=== PATIENT | male | born 1985 | race African-American/Black ===

== ENCOUNTER 2018-04-01 21:57 | Emergency (ER) | payer SELFPAY ==
[2018-04-01 21:59] VITALS: BP 114/70; PULSE 122; RESP 20; TEMP 35.9; O2SAT 98; BMI 20.3
[2018-04-01 23:20] VITALS: PULSE 89; RESP 18; O2SAT 100
[2018-04-01 23:21] VITALS: O2SAT 100
--- NOTE | 2018-04-02 | RAD_ITS ---
STUDY: X-RAY CHEST REASON FOR EXAM: Male, 33 years old. Shortness of breath and cough. TECHNIQUE: PA and lateral views of the chest. COMPARISON: A chest radiograph dated October 25, 2016. FINDINGS: There is hyperinflation of the lungs consistent with chronic obstructive lung disease (COPD). There is no demonstrated pleural abnormality. Normal size heart. Normal mediastinum and isaura. Normal visualized pulmonary arteries. Normal visualized aortic arch and descending thoracic aorta. Normal visualized thoracic spine. Normal visualized ribs, clavicles, and shoulders. There is no demonstrated abnormality of the visualized soft tissue structures of the upper abdomen. RAD/Chest PA and Lateral IMPRESSION: No radiographic evidence of acute cardiopulmonary disease. Electronically Signed: Ani Molina MD at 0:45 EDT , Service support ,
[2018-04-02 00:20] VITALS: PULSE 118; RESP 18
[2018-04-02] MEDS: Ipratropium/Albuterol Sulfate 3 ML AMPUL.NEB INHALATION (00:20)
--- NOTE | 2018-04-02 00:59 | ED.DCSUM_ITS ---
- ER Visit Summary Date of Service: 04/02/18 Chief Complaint: Shortness of breath and cough History of Present Illness: The patient is a 33 M who felt short of breath when he woke yesterday morning. He was sent home and work early. He states his shortness of breath worsened last night and then was even worse when he woke this morning. He has developed a cough with mild yellow sputum production. He reports chills. Physical Examination: Vital signs unremarkable. Patient is afebrile his pulse ox is 100% on room air. Head neck examination reveals cerumen blocking the left canal. Posterior pharynx examination was mild drainage. Heart is regular rate and rhythm. Lung sounds are diminished throughout. Abdomen is soft nontender. Test Results: Two-view chest x-ray shows no acute disease. Emergency Department Course and Treatment: Patient was given a DuoNeb. On repeat evaluation he does report improved symptoms. He does have increased air movement on auscultation. He is given albuterol inhaler with a spacer and taught how to use it. I will also treat him with a short course of steroids to prevent repeat bronchospasm. Treatment Plan: [] Disposition: Discharge Impression: Bronchitis This note was generated with The [employer] dictation software. It may contain incorrect words, spelling, and punctuation that were not noted in review of the chart prior to signing ED Disposition - Plan for ED Patient: Chief Complaint: Shortness of Breath Referrals: Care Physician,No Primary [Primary Care Provider] -
--- NOTE | 2018-04-02 00:59 | ED.DEP ---
ED Disposition - Plan for ED Patient: Disposition: Home or Assisted Living Chief Complaint: Shortness of Breath Instructions: Acute Bronchitis Prescriptions: Prednisone 40 mg PO DAILY #4 days Referrals: Sadie Salas MD [COURTESY STAFF PHYSICIAN] - As Needed
[2018-04-02] MEDS: predniSONE 20 MG Tablet 40 MG PO (01:07)
[2018-04-02 01:08] VITALS: BP 116/76; PULSE 114; RESP 16; O2SAT 100
[2018-04-02 01:11] VITALS: BP 116/76; PULSE 114; RESP 16; O2SAT 100
== END 2018-04-02 01:12 | disposition home or self-care (01) ==
PROVIDERS: Emergency Provider Emergency Medicine
DX: J40 Bronchitis, not specified as acute or chronic (principal); Z72.0 Tobacco use
CPT/HCPCS: 71046; 94640; 99283

== ENCOUNTER 2018-07-19 15:12 | Emergency (ER) | payer MEDICAID, SELFPAY ==
[2018-07-19 15:15] VITALS: BP 131/79; PULSE 70; RESP 16; TEMP 36.6; O2SAT 98; BMI 18.3
--- NOTE | 2018-07-19 15:21 | EKG12_ITS ---
Test Reason : DIZZINESS Blood Pressure : / mmHG Vent. Rate : 065 BPM Atrial Rate : 065 BPM P-R Int : 136 ms QRS Dur : 084 ms QT Int : 466 ms P-R-T Axes : 081 084 074 degrees QTc Int : 484 ms Normal sinus rhythm Right atrial enlargement Prolonged QT Abnormal ECG Confirmed by EVER CARTER, SHERITA ([id number]), visual effects editor GUANAKO CARDOSO ([id number]) on 07/22/2018 2:13:52 PM Referred By: RICKEY Confirmed By:SHERITA CURTIS MD
[2018-07-19 15:36] VITALS: O2SAT 97
--- NOTE | 2018-07-19 15:36 | CT_ITS ---
STUDY: CT BRAIN WITHOUT CONTRAST REASON FOR EXAM: Male, 33 years old. Dizziness RADIATION DOSAGE (If Supplied By Facility): CTDIvol = ( 44.99 ) mGy, DLP = ( 745.49 ) mGycm TECHNIQUE: Transaxial CT imaging of the brain was performed without administration of intravenous contrast material. Individualized dose optimization techniques were used for this CT. COMPARISON: None. FINDINGS: Normal soft tissue structures. Normal calvarium. Normal size ventricles and extra-axial spaces for the patient's age. Normal white matter tracts of the cerebral hemispheres. Normal basal ganglia and thalami. Normal brainstem. The central cerebellum on axial image 13, there is a 2.3 x 1.8 cm focal hyperdense lesion with adjacent vasogenic edema. There is extension of the hyperdense component into the inferior cerebellum (image 9). Associated mass effect of the cerebellum with loss of cerebellar sulci but no rigo hydrocephalus identified. There are no findings of an acute ischemic infarction. Normal visualized paranasal sinuses. CT/Brain/Head without Contrast IMPRESSION: 1. Central posterior fossa/cerebellar hemorrhage with adjacent vasogenic edema. Differential considerations include hypertensive intracranial hemorrhage or intracranial mass such as hemangioblastoma, metastasis or vascular malformation. N.B. : The above information has been verbally conveyed by Vincenzo Meyers MD to Nancie Vania on 07/19/2018 17:09:55 (ET). Electronically Signed: Vincenzo Meyers MD at 17:15 EST , Service support ,
--- NOTE | 2018-07-19 15:36 | CT_ITS ---
STUDY: CT ABDOMEN AND PELVIS WITHOUT CONTRAST REASON FOR EXAM: Male, 33 years old. Abdominal pain RADIATION DOSAGE (If Supplied By Facility): CTDIvol = ( 6.04 ) mGy, DLP = ( 271.80 ) mGycm TECHNIQUE: Transaxial images were obtained from the dome of the diaphragm to the symphysis pubis without oral contrast, and without intravenous contrast. Sagittal and coronal images were reconstructed. Individualized dose optimization techniques were used for this CT. COMPARISON: None. FINDINGS: The visualized lung bases are unremarkable. The visualized portions of the heart are within normal limits. Normal liver. Normal gallbladder and extrahepatic biliary system. Normal spleen. Normal pancreas. Normal bilateral adrenal glands. Normal right kidney. Normal left kidney. Normal visualized stomach. Normal small intestine. There is moderate fecal retention within the rectal vault. No colon wall thickening. The appendix is not seen Normal abdominal aorta. Normal inferior vena cava. Normal retroperitoneum. Normal urinary bladder. Normal abdominal wall. Normal osseous structures. CT/Abdomen/Pelvis without Cont IMPRESSION: 1. No acute inflammatory process, hydronephrosis or renal stones. 2. Mild fecal retention in the rectum N.B. : The above information has been verbally conveyed by Vincenzo Meyers MD to Nancie Felicianopaulo on 07/19/2018 17:15:08 (ET). Electronically Signed: Vincenzo Meyers MD at 17:17 EST , Service support ,
[2018-07-19] MEDS: 0.9% Normal Saline 1,000 ML 150 ML IV (15:37)
--- NOTE | 2018-07-19 15:38 | RAD_ITS ---
STUDY: X-RAY CHEST REASON FOR EXAM: Male, 33 years old. Dizziness with nausea and vomiting for 3 days TECHNIQUE: AP COMPARISON: 04/02/2018 FINDINGS: The lungs are clear and expanded. There is no demonstrated pleural abnormality. Normal size heart. Normal mediastinum and isaura. Normal visualized pulmonary arteries. Normal visualized aortic arch and descending thoracic aorta. Normal visualized thoracic spine. Normal visualized ribs, clavicles, and shoulders. There is no demonstrated abnormality of the visualized soft tissue structures of the upper abdomen. RAD/Chest 1 View (Portable) IMPRESSION: Normal x-ray examination of the chest. Electronically Signed: Vincenzo Meyers MD at 16:06 EST , Service support ,
--- NOTE | 2018-07-19 15:38 | ED.VISSUMM ---
- ER Visit Summary Date of Service: 07/19/18 Chief Complaint: [] Vomiting for 3 days History of Present Illness: The patient is a 33 M [] patient reports he has had vomiting dizziness for 3 days with consistent protracted vomiting to the point he cannot take even small amounts of liquids, he also indicates if he moves his body weight he is very dizzy and that triggers vomiting, he has no headache, no fever no cough no URI symptoms, no abdominal pain normal bowel habits normal urinary habits, he has no past history, no exposures to sick individuals or tainted food or antibiotics, he has no past history he smokes cigarettes occasionally smokes marijuana occasionally Physical Examination: [] 135/80 afebrile He was quite diaphoretic with IV start General, no distress resting comfortably HEENT is generally unremarkable The neck is supple no adenopathy Cardiovascular, regular rate and rhythm Lungs, clear bilateral Abdomen, soft nontender Extremities, no clubbing cyanosis or edema Neurologic, awake alert answering questions appropriately moving all 4 extremities movement of his head causes dizziness he has full range of all range of motion all extremities his NIH is 0 cranial nerves normal Test Results: [] Emergency Department Course and Treatment: [] Protracted vomiting for 3 days with dizziness the differentials rather extensive, there are no obvious reasons he would have all of the above as he has been healthy with no past history IV fluids, CT head and abdomen reevaluate There is a hemorrhage involving the right cerebellar area with some edema and some slight shift the fourth ventricle appears open when we immediately saw that we contacted [facility] neurosurgery who accepted the patient in transfer the patient on reevaluation is resting comfortably bed he is awake and alert no neurologic abnormalities his feet he feels better we just with the fluids I explained the CT finding the need to transfer to tertiary care neurosurgery management he agrees to transfer, due to the very inclement weather we will be transferred by ground, The formal CT results and labs will be pending but we will not delay his transfer those results will be reviewed later and on the chart Treatment Plan: [] Disposition: [] Transfer [facility] neurosurgery Impression: [] Cerebellar intraparenchymal hemorrhage, nausea and vomiting This note was generated with [employer] software. It may contain incorrect words, spelling, and punctuation that were not noted in review of the chart prior to signing ED Disposition - Plan for ED Patient: Chief Complaint: Dizziness Referrals: Care Physician,No Primary [Primary Care Provider] -
[2018-07-19 15:51] LABS: Absolute Lymphocyte Count 3.77 X10^3/ul (0.83-4.51); Absolute Neutrophil Count 2.4 X10^3/uL (2.0-7.7); Basophil# 0.03 X10^3/uL; Basophil% 0.4 % (0-1); Eosinophil# 0.04 X10^3/uL; Eosinophils% 0.6 % (0-5); Hematocrit 50.5 % (40-54); Hemoglobin 17.5 g/dl (13.0-16.5); Lymphocyte # 3.77 X10^3/ul (4.0); Mean Corp Hgb Conc 34.7 g/gl (32-36); Mean Corpuscular Hgb 31.5 pg (27.0-32.0); Mean Platelet Vol. 9.6 fl (6.2-12.0); Monocyte# 0.62 X10^3/uL; Monocyte% 9.1 % (0-10); Neutrophil # 2.36 X10^3/uL (2.7-7.7); Neutrophil % 34.5 % (47-70); Platelet Count 206 K/mm3 (150-450); RBC Distribution Width CV 13.6 % (11.6-14.6); RBC Distribution Width SD 44.9 fl (35.1-43.9); Red Blood Count 5.55 M/mm3 (4.6-6.2); White Blood Count 6.9 K/mm3 (4.4-11.0)
[2018-07-19 16:04] LABS: POSITIVE COUNT NO; POSITIVE DIFFERENTIAL NO; POSITIVE MORPHOLOGY NO
[2018-07-19 16:11] LABS: Anion Gap 10 (5-15); BUN 10 mg/dL (7-18); BUN/Creat Ratio 8.8 RATIO (10-20); Calcium,Total 9.2 mg/dL (8.5-10.1); Chloride 101 mmol/L (98-107); Creatinine, Serum 1.13 mg/dL (0.70-1.30); EST Glomerular Filtration Rate 80 mL/min (>60); Est Glom Filt Rate - Afr Amer 96 mL/min (>60); Glucose 92 mg/dL (74-106); Sodium Level 137 mmol/L (136-145)
--- NOTE | 2018-07-19 17:02 | NURSING ---
CALLED [facility]
[2018-07-19 17:10] VITALS: BP 126/89; PULSE 61; RESP 12; O2SAT 98
[2018-07-19 17:34] VITALS: BP 123/83; PULSE 62; RESP 16; TEMP 36.7; O2SAT 98
[2018-07-19] MEDS: 0.9% Normal Saline 1,000 ML 500 ML IV ×2 (17:38)
[2018-07-19 18:31] LABS: Bacteria 0 SEEN /hpf (None Seen)
[2018-07-19 18:41] LABS: Color, Urine Yellow (Yellow); Glucose, Dipstick Normal (Normal); Ketone-Dipstick 15 mg/dl (Negative); Leukocyte Esterase-Dipstick 100 /ul (Negative); Nitrite-Dipstick Negative (Negative); Occult Blood-Urine Negative /ul (Negative); Protein-Dipstick 15 mg/dl (Negative); Urine Bilirubin Dipstick Negative (Negative); Urine Clarity Clear (Clear); Urine Urobilinogen Normal (Normal)
[2018-07-19 18:48] LABS: Mucous, Urine RARE /hpf (<or=2+); Squamous Epithelial Cells - UA 0-5 SEEN /hpf (0-5); Transitional Epithelial - Ur 0-5 SEEN /hpf (0-5)
[2018-07-19 18:49] LABS: Hyaline Cast 0-5 SEEN /lpf (0-5)
[2018-07-19 18:52] LABS: Red Blood Cells-Urine 0-5 SEEN /hpf (0-5); White Blood Cells 0-5 SEEN /hpf (0-5)
[2018-07-19 18:57] LABS: Trichomonas 0-5 SEEN /hpf (None Seen)
--- NOTE | 2018-07-19 19:09 | ED.RN ---
Called result of urine test to Jessie at [facility] on Neuro ICU. +trich.
== END 2018-07-19 17:35 | disposition short-term general hospital (02) ==
LOC: ED 16:25
PROVIDERS: Emergency Provider Emergency Medicine
DX: I61.4 Nontraumatic intracerebral hemorrhage in cerebellum (principal); R11.2 Nausea with vomiting, unspecified; R42 Dizziness and giddiness; F12.90 Cannabis use, unspecified, uncomplicated; Z72.0 Tobacco use
CPT/HCPCS: 70450; 71045; 74176; 80048; 81001; 84484; 85025; 93005; 96360; 96361; 99285; J7030; A4216

== ENCOUNTER 2020-10-27 17:45 | Emergency (ER) | payer SELFPAY ==
[2020-10-27 17:46] VITALS: BP 127/78; PULSE 75; RESP 16; TEMP 36.3; O2SAT 98; BMI 20.9
--- NOTE | 2020-10-27 17:55 | EKG12_ITS ---
Test Reason : CP/SOB Blood Pressure : / mmHG Vent. Rate : 070 BPM Atrial Rate : 070 BPM P-R Int : 136 ms QRS Dur : 088 ms QT Int : 378 ms P-R-T Axes : 080 085 066 degrees QTc Int : 408 ms Normal sinus rhythm Right atrial enlargement Borderline ECG Confirmed by EVER CARTER, SHERITA ([id number]), editor trade journal ROMINA BRAY ([id number]) on 10/31/2020 12:41:09 PM Referred By: SOTERO/MAYO Confirmed By:SHERITA CURTIS MD
--- NOTE | 2020-10-27 18:57 | RAD_ITS ---
STUDY: X-RAY CHEST REASON FOR EXAM: Male, 35 years old. Cough. Chest pain. TECHNIQUE: PA and lateral views of the chest. COMPARISON: 07/19/2018. FINDINGS: The lungs are hyperexpanded. No infiltrate or mass. There is no demonstrated pleural abnormality. Normal size heart. Normal mediastinum and isaura. Normal visualized pulmonary arteries. Normal visualized aortic arch and descending thoracic aorta. Normal visualized thoracic spine. Normal visualized ribs, clavicles, and shoulders. There is no demonstrated abnormality of the visualized soft tissue structures of the upper abdomen. RAD/Chest PA and Lateral IMPRESSION: No acute cardiopulmonary disease or interval change. Electronically Signed: Juan Rivera DO at 19:48 EDT Tel [phone], Service support ,
[2020-10-27 19:04] VITALS: BP 114/73; PULSE 59; RESP 16; O2SAT 98
[2020-10-27] MEDS: predniSONE 20 MG Tablet 60 MG PO (19:08)
[2020-10-27] MEDS: Albuterol Sulfate 8 gm Inhaler (60 puffs) 2 PUFF INHALATION (19:25)
--- NOTE | 2020-10-27 19:36 | ED.VIS.CHEST ---
HPI History of Present Illness Chief Complaint: Chest Pain Informant: patient Onset/Context/Timing Onset: Weeks Activity at onset: gradual Timing: Intermittent Quality: Positive for Sharp Location: Right Parasternal and Left Parasternal Current Severity: Mild Maximum Severity: Mild Worsened By: Coughing Relieved By: Nothing Narrative Narrative: The patient is a 35-year-old male with medical history significant for asthma and bronchospasm who presents to the emergency department intermittent chest pain. The patient states that he was diagnosed with exercise-induced asthma. Has been out of his inhaler for about a year because of Covid. He states sometimes, he will get cough and feel sharp pains in his chest with coughing. He denies any fevers or chills. He denies hemoptysis. He denies difficulty laying flat. Prior Similar Symptoms: Yes Recent Illness/Hospitalization: No CVD Risk Factors: Negative for Hypertension, Diabetes and Hypercholesterolemia PFSH PFSH Home Medications albuterol sulfate [Ventolin HFA] 2 puff INHALATION Q4H PRN PRN #1 inhaler 10/27/20 [Rx Last Taken Unknown] prednisone 60 mg PO DAILY #15 tablet 10/27/20 [Rx Last Taken Unknown] Allergy/AdvReac Type Severity Reaction Status Date / Time No Known Allergies Allergy Verified 07/19/18 15:13 no significant family history no surgical history Social History Smoking Status: Current every day smoker ROS ROS ED Constitutional Constitutional ED: Denies chills or fever(s) Eyes Eyes: Denies blurry vision or change in vision ENT ENT ED: Denies ear pain or sore throat Cardiovascular Cardiovascular: Denies chest pain or palpitations Respiratory/Chest Respiratory/Chest: Reports cough and dyspnea Gastrointestinal Gastrointestinal: Denies abdominal pain, nausea or vomiting Genitourinary Genitourinary ED: Denies dysuria or urinary frequency Musculoskeletal Musculoskeletal: Denies arthralgias or myalgias Integumentary Denies rash Neurologic Neurologic: Denies headache(s) or paresthesias Psychiatric Psychiatric: Denies anxiety or depression Endocrine Endocrinology: Denies polydipsia or polyuria Allergic/Immunologic Allergic/Immunologic ED: Denies urticaria EXAM Physical Exam Const Vital Signs: 10/27/20 17:46 10/27/20 19:02 10/27/20 19:04 Temperature 97.3 F L Temperature Source Temporal Pulse Rate 75 59 L Respiratory Rate 16 16 Respiratory Effort Non-Labored Short of Breath Blood Pressure 127/78 H 114/73 Blood Pressure Mean 94 86 Pulse Ox 98 98 Oxygen Delivery Method Room Air Room Air Positive well nourished and well developed General Appearance ED: well developed HEENT Reports normocephalic, head/scalp atraumatic and moist mucous membranes Eyes PERRL and EOMs intact bilaterally Neck no lymphadenopathy and supple General: Negative for tenderness Chest Wall inspection of chest normal Resp normal respiratory effort and clear to auscultation bilaterally Effort and Inspection: Negative for respiratory distress Auscultation: wheezes Cardio regular rate, regular rhythm and no murmurs GI normal to inspection, nondistended, normoactive bowel sounds Palpation: Negative for tender, guarding or rebound tenderness present Back/Spine no CVA tenderness Cervical Spine: Negative for cervical spine tenderness Thoracic Spine / Upper Back: Negative for thoracic spinal tenderness Extremity normal to inspection General Extremety ED: Negative for tenderness Neuro oriented x3 and CN's II-XII intact bilaterally Neuro Narrative: No focal deficits appreciated. Sensorium / Orientation: alert Psych mental status grossly normal Skin no rashes or lesions noted, no wounds and skin turgor normal Heart Score History: Slightly/Non-Suspicious ECG: Normal Age: </= 45 years Risk Factors: No Risk Factors Troponin: </= Normal Limit Score: 0 MDM MDM MDM Narrative Medical decision making narrative: The patient has a PERC score of 0. His symptoms are consistent with bronchospasm. He did have scant wheeze. He is given prednisone and albuterol treatment. His EKG was sinus rhythm. There is no acute ischemic change. 2 views of the chest were obtained. They reviewed by myself and the radiologist. There is no focal infiltrative process. There is no pneumothorax. There is no pneumonia. I am going to treat the patient with prednisone and inhaler. He will be discharged home. Radiography Chest X-Ray - ED: 2 View, Normal, Heart, Lungs, Mediastinum, Bony Structures and No Acute Disease EKG Initial EKG: Attestation: I personally reviewed and interpreted this EKG as follows: Interpretation: Sinus Rhythm and No Acute Injury Pattern Prior: Unchanged Discharge Plan Triage Chief Complaint: Chest Pain ED Provider: Abdoulaye Lagos Dx/Rx/DC Orders Instructions: ED Pleurisy Prescriptions: New prednisone 20 MG tablet 60 mg PO DAILY Qty: 15 RF: 0 albuterol sulfate [Ventolin HFA] 1 INHALER inhaler 2 puff inhalation Q4H PRN PRN (Reason: Wheezing) Qty: 1 RF: 0 Primary Care Provider: Care Physician,No Primary Referrals: Care Physician,No Primary [Primary Care Provider] -
[2020-10-27 20:21] VITALS: BP 109/71; O2SAT 100
== END 2020-10-27 20:29 | disposition home or self-care (01) ==
LOC: ED 19:34
PROVIDERS: Emergency Provider Emergency Medicine
DX: R09.1 Pleurisy (principal); J45.990 Exercise induced bronchospasm; F17.200 Nicotine dependence, unspecified, uncomplicated
CPT/HCPCS: 71046; 93005; 99282

== ENCOUNTER 2021-02-08 12:02 | Emergency (ER) | payer SELFPAY ==
[2021-02-08 12:03] VITALS: BP 189/51; PULSE 60; RESP 14; TEMP 36.6; O2SAT 100; BMI 23.4
--- NOTE | 2021-02-08 12:45 | RAD_ITS ---
STUDY: X-RAY - RIGHT SHOULDER REASON FOR EXAM: Male, 36 years old. Pain TECHNIQUE: 4 view(s) of the shoulder. COMPARISON: None. FINDINGS: Normal glenohumeral articulation. Normal acromioclavicular joint. Normal acromion. Normal humeral head and visualized proximal humerus. The soft tissue structures are unremarkable. Normal visualized pulmonary apex. RAD/Shoulder min 2 Views IMPRESSION: Normal x-ray examination of the shoulder. Electronically Signed: Wilian Ragsdale MD at 13:12 EDT , Service support ,
[2021-02-08] MEDS: Naproxen 500 MG Tablet PO (13:06)
[2021-02-08 13:07] VITALS: BP 102/67
--- NOTE | 2021-02-08 13:14 | EX.ED.UPPERE ---
HPI History of Present Illness Chief Complaint: Upper Extremity Injury Informant: patient Onset/Context/Timing Onset: Yesterday Current Severity: Mild Maximum Severity: Moderate Narrative Narrative: Patient presents secondary to right shoulder pain. He states when he woke yesterday morning he had an achiness in his right shoulder and assumed he had slept wrong on it. While at work he was reaching for a part and developed sharp pain in his right shoulder. He was able to finish his shift after taking some ibuprofen. He did note some intermittent paresthesias in his arm. Patient states when he woke this morning pain was a little worse but he did go to work. While at work today he had cramping and spasm in his right arm. Patient is left-hand dominant. [facility] Medical History Brain aneurysm Smoker Substance abuse Home Medications cyclobenzaprine 10 mg PO BID PRN #10 tab 02/08/21 [Rx Last Taken Unknown] naproxen [Naprosyn] 500 mg PO BID PRN #20 tab 02/08/21 [Rx Last Taken Unknown] Allergy/AdvReac Type Severity Reaction Status Date / Time No Known Allergies Allergy Verified 02/08/21 12:06 Social History Smoking Status: Current every day smoker tobacco type: cigarettes ROS ROS ED Constitutional Constitutional ED: Denies chills or fever(s) Eyes Eyes: Denies change in vision ENT ENT ED: Denies sore throat Cardiovascular Cardiovascular: Denies chest pain Respiratory/Chest Respiratory/Chest: Denies cough or dyspnea Gastrointestinal Gastrointestinal: Denies abdominal pain, diarrhea, nausea or vomiting Genitourinary Genitourinary ED: Denies dysuria Musculoskeletal Musculoskeletal: Reports other Details: Arthralgias right upper extremity ; Denies back pain or neck pain Integumentary Denies rash Neurologic Neurologic: Reports paresthesias; Denies headache(s) or weakness Psychiatric Psychiatric: Denies anxiety or depression Allergic/Immunologic Allergic/Immunologic ED: Denies urticaria EXAM Physical Exam Const Vital Signs: 02/08/21 12:03 02/08/21 13:07 Temperature 97.8 F Temperature Source Temporal Pulse Rate 60 Respiratory Rate 14 Blood Pressure 189/51 H 102/67 Blood Pressure Mean 97 78 Pulse Ox 100 Oxygen Delivery Method Room Air Positive well nourished and well developed General Appearance ED: well developed HEENT normocephalic and atraumatic Eyes PERRL Neck supple Chest Wall inspection of chest normal and palpation of chest normal Resp normal respiratory effort and clear to auscultation bilaterally Cardio regular rate and regular rhythm GI non-tender Palpation: soft Back/Spine Cervical Spine: Negative for cervical spine tenderness Thoracic Spine / Upper Back: Negative for thoracic spinal tenderness Extremity Extremity Narrative: Mild tenderness around the right humeral head. Full range of motion without difficulty. Strong distal pulses. No overlying skin changes. Neuro oriented x3, moves all extremities and no sensory deficits noted Sensorium / Orientation: alert Psych mental status grossly normal Skin Lesions: no lesions Rashes: no rashes MDM MDM MDM Narrative Medical decision making narrative: Patient was given naproxen. Right shoulder x-rays obtained. Radiography Diagnostic Testing: Radiology Impression Shoulder X-Ray 02/08/21 12:45 IMPRESSION: Normal x-ray examination of the shoulder. Electronically Signed: Wilian Ragsdale MD at 13:12 EDT , Service support , Treatment and Re-Evaluation Comments:: Right shoulder x-ray per my interpretation reveals no acute findings. Patient is given prescription for naproxen and Flexeril. He is referred to orthopedics if not improving. He is given work restrictions for the next 3 days. Discharge Plan Triage Chief Complaint: Upper Extremity Injury ED Provider: Keshia Holder Dx/Rx/DC Orders Clinical Impression: Sprain of right shoulder Instructions: ED Shoulder Sprain Prescriptions: New naproxen [Naprosyn] 500 mg tablet 500 mg PO BID PRN (Reason: pain) Qty: 20 RF: 0 cyclobenzaprine 10 mg tablet 10 mg PO BID PRN (Reason: muscle spasm) Qty: 10 RF: 0 Stand Alone Forms: ED Work / School Excuse Primary Care Provider: Care Physician,No Primary Referrals: Michoacano Domingo DO [STAFF PHYSICIAN] - As Needed Care Physician,No Primary [Primary Care Provider] - Disposition Disposition: Home, Self Care Discharge Date/Time: 02/08/21 13:28
[2021-02-08 13:27] VITALS: BP 109/74; PULSE 67; RESP 15; O2SAT 98
== END 2021-02-08 13:28 | disposition home or self-care (01) ==
PROVIDERS: Emergency Provider Emergency Medicine
DX: S43.401A Unspecified sprain of right shoulder joint, initial encounter (principal); X58.XXXA Exposure to other specified factors, initial encounter; Y93.9 Activity, unspecified; Y92.9 Unspecified place or not applicable; I67.1 Cerebral aneurysm, nonruptured; F17.210 Nicotine dependence, cigarettes, uncomplicated
CPT/HCPCS: 73030; 99282

== ENCOUNTER 2021-09-15 16:31 | Emergency (ER) | payer SELFPAY ==
[2021-09-15 16:32] VITALS: BP 94/74; PULSE 57; RESP 18; TEMP 36.6; O2SAT 100; BMI 22.4
--- NOTE | 2021-09-15 17:11 | EDS_ITS ---
HPI History of Present Illness Chief Complaint: Cold Sx Informant: patient Onset/Context/Timing Onset: Days Context: Gradual Onset Current Severity: Mild Maximum Severity: Moderate Narrative Narrative: Patient presents secondary to cough and subjective fever and chills for the past 5 days. Patient states he just went to sleep a lot. He has not measured a temperature at home. He states that he was diagnosed with COVID just over a month ago but was really asymptomatic at that time. [facility] Medical History Brain aneurysm Smoker Substance abuse Home Medications NK 09/15/21 [History Last Taken Unknown] azithromycin [Zithromax Z-Charli] See Rx Instructions PO .COMPLEX #6 tab 09/15/21 [Rx Last Taken Unknown] Allergy/AdvReac Type Severity Reaction Status Date / Time No Known Allergies Allergy Verified 09/15/21 16:33 Social History Smoking Status: Current every day smoker tobacco type: cigarettes ROS ROS ED Constitutional Constitutional ED: Reports chills, fever(s) and subjective Eyes Eyes: Denies blurry vision ENT ENT ED: Denies ear pain Cardiovascular Cardiovascular: Denies chest pain or palpitations Respiratory/Chest Respiratory/Chest: Reports cough; Denies dyspnea or sputum Gastrointestinal Gastrointestinal: Denies abdominal pain, diarrhea, nausea or vomiting Integumentary Denies rash Neurologic Neurologic: Denies headache(s) Allergic/Immunologic Allergic/Immunologic ED: Denies urticaria EXAM Physical Exam Const Vital Signs: 09/15/21 16:32 09/15/21 17:29 Temperature 98 F Temperature Source Temporal Pulse Rate 57 L Respiratory Rate 18 Respiratory Depth Normal Respiratory Pattern Normal Blood Pressure 94/74 Blood Pressure Mean 80 Pulse Ox 100 Oxygen Delivery Method Room Air Positive well nourished and well developed General Appearance ED: well developed HEENT Reports moist mucous membranes HEENT Narrative: Normal posterior pharynx. Eyes PERRL and EOMs intact bilaterally Neck no lymphadenopathy and supple Chest Wall inspection of chest normal and palpation of chest normal Resp normal respiratory effort and clear to auscultation bilaterally Cardio regular rate and regular rhythm GI non-tender Palpation: soft Extremity normal to inspection Neuro oriented x3 Sensorium / Orientation: alert Psych mental status grossly normal Skin no rashes or lesions noted MDM MDM MDM Narrative Medical decision making narrative: Covid/influenza test obtained along with chest x-ray. Lab Data Attestation: I reviewed the patient's lab results. Radiography Diagnostic Testing: Clinical Impression(s) from Imaging Studies Chest X-Ray 09/15/21 17:14 IMPRESSION: Normal x-ray examination of the chest. Electronically Signed: Musa Terrazas MD at 17:26 EDT , Treatment and Re-Evaluation Narrative: Chest x-ray per mitral rotation reveals no infiltrate. Covid and influenza test are both negative. Patient does complain of sinus pressure with drainage and abnormal smell for the past month. I will cover him with a Z-Charli for potential sinusitis. I did explain to him that my suspicion is his current illness is all viral and will simply need to run its course. He voices understanding and agreement. Discharge Plan Triage Chief Complaint: Cold Sx ED Provider: Keshia Holder Dx/Rx/DC Orders Clinical Impression: Viral syndrome, Sinusitis Instructions: ED Sinusitis (Antibiotic Treatment), ED Viral Syndrome (Adult) Prescriptions: New azithromycin [Zithromax Z-Charli] 250 mg tablet See Rx Instructions PO .COMPLEX Qty: 6 RF: 0 No Action NK RF: 0 Primary Care Provider: Care Physician,No Primary Referrals: Marlin Peterson MD [STAFF PHYSICIAN] - 1-2 Weeks Care Physician,No Primary [Primary Care Provider] - Disposition Disposition: Home, Self Care
--- NOTE | 2021-09-15 17:14 | RAD_ITS ---
STUDY: X-RAY CHEST REASON FOR EXAM: Male, 36 years old. cough TECHNIQUE: AP portable COMPARISON: 10/27/2020. FINDINGS: The lungs are clear and expanded. There is no demonstrated pleural abnormality. Normal size heart. Normal mediastinum and isaura. Normal visualized pulmonary arteries. Normal visualized aortic arch and descending thoracic aorta. Normal visualized thoracic spine. Normal visualized ribs, clavicles, and shoulders. There is no demonstrated abnormality of the visualized soft tissue structures of the upper abdomen. No change since prior exam RAD/Chest 1 View (Portable) IMPRESSION: Normal x-ray examination of the chest. Electronically Signed: Musa Terrazas MD at 17:26 EDT ,
[2021-09-15 18:33] VITALS: BP 108/77; PULSE 62; RESP 15; O2SAT 98
== END 2021-09-15 18:34 | disposition home or self-care (01) ==
PROVIDERS: Emergency Provider Emergency Medicine; Visit Provider Emergency Medicine
DX: J32.9 Chronic sinusitis, unspecified (principal); B34.9 Viral infection, unspecified; F17.210 Nicotine dependence, cigarettes, uncomplicated; Z86.16 Personal history of COVID-19
CPT/HCPCS: 71045; 87428; 99282

== ENCOUNTER 2023-01-16 11:04 | Emergency (ER) | payer SELFPAY ==
[2023-01-16 11:04] VITALS: BP 104/61; PULSE 59; RESP 18; TEMP 36.1; O2SAT 100; BMI 19.8
--- NOTE | 2023-01-16 11:15 | EDS_ITS ---
HPI History of Present Illness Chief Complaint: Ear Problem Narrative Narrative: 38-year-old male who denies significant past medical history presents with decreased hearing out of his left ear. He states he went swimming on Saturday, 3 days ago, and went down water slides, did go underwater, and has had decreased hearing out of his left ear today. He denies any ear pain, no fever or chills. He states he was sleeping on his right ear and could not hear his alarm today. Now, he has muffled hearing out of his left ear. No exacerbating or alleviating factors. [facility] Medical History Brain aneurysm Smoker Substance abuse Home Medications NK 09/15/21 [History Last Taken Unknown] azithromycin 250 mg tablet (Zithromax Z-Charli) See Rx Instructions PO .COMPLEX #6 tabs 09/15/21 [Rx Last Taken Unknown] Allergy/AdvReac Type Severity Reaction Status Date / Time No Known Allergies Allergy Verified 01/16/23 11:05 Social History Smoking Status: Current every day smoker tobacco type: cigarettes ROS ROS ED ROS Narrative Constitutional: No fever, no chills. HEENT: No sore throat. No neck pain. No loss of vision. No rhinorrhea. Muffled hearing out of left ear. Cardiovascular: No chest pain. No palpitations. No pedal edema. Respiratory: No cough, no shortness of breath. Abdominal: No abdominal pain. No nausea. No vomiting. Genitourinary: No dysuria. No hematuria. Musculoskeletal: No myalgias. No arthralgias. Neurologic: No headaches. No dizziness. No lightheadedness. Skin: No rash. No change in color. Psychiatric: No depression. No anxiety. EXAM Physical Exam Narrative Exam Narrative: Afebrile. Vital signs noted. HEENT: Normocephalic. Atraumatic. PERRL, EOMI. Neck soft and supple. No point tenderness or step off. Right TM visualized. No mastoid tenderness on the left, no erythema, no swelling of canal. Positive cerumen impaction on the left. Cardiovascular: Regular rate and rhythm. No murmurs, rubs, or gallops appreciated. Respiratory: No tachypnea. Lungs clear to auscultation bilaterally. Gastrointestinal: Abdomen soft, nontender, with normoactive bowel sounds. No rebound or guarding. Neurological: Awake. Alert. Nonfocal, nonlateralizing. Skin: No rash. Normal color. No pallor. Musculoskeletal: No pedal edema. Full range of motion extremities. Const Vital Signs: 01/16/23 11:04 Temperature 97 F L Temperature Source Temporal Pulse Rate 59 L Respiratory Rate 18 Blood Pressure 104/61 Blood Pressure Mean 75 Pulse Ox 100 Oxygen Delivery Method Room Air MDM MDM MDM Narrative Medical decision making narrative: Given his clinical examination, concern is for cerumen impaction. No feel CT imaging or laboratory work is indicated. Debrox will be instilled in his left ear and his left ear will be irrigated. He was told not to use cotton swabs in his ears as he has reported that he has been doing so and attempt to clean out any wax. RN reports that she was unable to remove the cerumen impaction even after Debrox and irrigation. He was referred to otolaryngology. I do not feel that he requires admission. He can continue to use [id number] medications and Debrox. I feel he can be discharged safely home with follow-up. Return instructions were reviewed. Disposition is discharged home in stable condition. Discharge Plan Triage Chief Complaint: Ear Problem ED Provider: Edvin Gregg Dx/Rx/DC Orders Clinical Impression: Hearing decreased, Impacted cerumen of left ear Instructions: ED Cerumen Impaction Treated Prescriptions: No Action NK azithromycin [Zithromax Z-Charli] 250 mg tablet See Rx Instructions PO .COMPLEX Qty: 6 0RF Rx Instructions: take 500 mg today (day 1), then 250 mg for 4 days (days 2-5) Primary Care Provider: Care Physician,No Primary Referrals: Sukhwinder Lara MD [Med Staff - Active Staff] - As soon as possible Care Physician,No Primary [Primary Care Provider] - Disposition Disposition: Home, Self Care
[2023-01-16] MEDS: Carbamide Peroxide 15 ML Bottle 5 DRP OTIC (11:32)
== END 2023-01-16 12:45 | disposition home or self-care (01) ==
PROVIDERS: Emergency Provider Emergency Medicine; Visit Provider Emergency Medicine
DX: H61.22 Impacted cerumen, left ear (principal); F17.210 Nicotine dependence, cigarettes, uncomplicated; X58.XXXA Exposure to other specified factors, initial encounter; Y92.89 Other specified places as the place of occurrence of the external cause
CPT/HCPCS: 99283; A4216

== ENCOUNTER 2024-08-01 15:11 | Emergency (ER) | payer SELFPAY ==
[2024-08-01] VITALS (11 sets, daily range): BP systolic 63–106; BP diastolic 37–62; PULSE 63–109; RESP 11–17; TEMP 36.4; O2SAT 99–100; BMI 19.6
--- NOTE | 2024-08-01 15:29 | EX.ED.DYSGE1 ---
HPI History of Present Illness Chief Complaint: Shortness of Breath Detail of Chief Complaint: Patient is somnolent. Informant: patient and friend Onset/Context/Timing Onset: Hours (15 minutes prior to presentation) Context: Sudden Onset Timing: Continuous Quality: Decreased level consciousness, numb pulsation right occipital area Location: Right occipital area Current Severity: Varies and is pulsating per patient. Worsened by: Nothing Relieved by: Nothing Associated Symptoms Associated Symptoms: Visions become slightly blurry when the pulsation/numbness is worse Narrative Narrative: Per friend he presented because of shortness of breath. When patient was awakened he states he has a numb pulsating sensation right occipital area. He does have blurred vision with this. He denies potter ears decreased hearing. He denies rhinorrhea, congestion, postnasal drainage sore throat. He denies double vision or loss of vision. He has history of aneurysm repair. He denies cough. He is a smoker and uses marijuana. He states he no longer uses any drugs stronger than marijuana. He does have a past history of drug use. He denies alcohol use in the past week. He denies cough. He denies chest pain. He denies abdominal pain, nausea, vomiting or diarrhea. He denies urologic symptoms. He complained of numbness left hand when the blood pressure cuff was inflating. Patient was seen December 2022 for decreased hearing. August 1999 for sinusitis. January 2021 for shoulder sprain. Prior similar symptoms: No Recent Illness/Hospitalization: No [facility] Medical History Brain aneurysm Smoker Substance abuse Home Medications ?Medication ?Instructions ?Recorded ?Last Taken ?Type NK 09/15/21 Unknown History azithromycin 250 mg tablet See Rx Instructions PO .COMPLEX #6 09/15/21 Unknown Rx (Zithromax Z-Charli) tabs Allergy/AdvReac Type Severity Reaction Status Date / Time No Known Allergies Allergy Verified 08/01/24 15:14 Social History Smoking Status: Current every day smoker tobacco type: cigarettes ROS ROS ED Constitutional Constitutional ED: Denies chills, fever(s), subjective, sweats or weight loss Eyes Eyes: Reports blurry vision; Denies change in vision or diplopia ENT ENT ED: Denies ear pain, rhinorrhea or sore throat Cardiovascular Cardiovascular: Denies chest pain, orthopnea, palpitations, paroxysmal nocturnal dyspnea or racing heartbeat Respiratory/Chest Respiratory/Chest: Reports dyspnea; Denies cough, dyspnea on exertion, orthopnea or paroxysmal nocturnal dyspnea Gastrointestinal Gastrointestinal: Denies abdominal pain, diarrhea, nausea or vomiting Genitourinary Genitourinary ED: Denies dysuria or urinary frequency Musculoskeletal Musculoskeletal: Denies arthralgias, back pain or neck pain Integumentary Denies Abrasions or rash Neurologic Neurologic: Reports paresthesias; Denies headache(s) or weakness Endocrine Endocrinology: Denies cold intolerance or heat intolerance Hematologic/Lymphatic Hematologic/Lymphatic: Reports systems reviewed and no addt'l complaints, except as documented EXAM Physical Exam Const Vital Signs: 08/01/24 15:11 08/01/24 15:27 08/01/24 17:15 Temperature 97.5 F L Temperature Source Temporal Pulse Rate 71 Pulse Rate [Lying] 78 Pulse Rate [Sitting (for 1 minute prior to obtaining)] 85 Pulse Rate [Standing (for 1 minute prior to obtaining)] 109 H Respiratory Rate 16 Respiratory Effort Normal Respiratory Depth Normal Respiratory Pattern Normal Blood Pressure 89/55 L Blood Pressure [Lying] 91/41 L Blood Pressure [Sitting (for 1 minute prior to obtaining)] 88/37 L Blood Pressure [Standing (for 1 minute prior to obtaining)] 63/49 L Blood Pressure Mean 66 Blood Pressure Mean [Lying] 57 Blood Pressure Mean [Sitting (for 1 minute prior to obtaining)] 54 Blood Pressure Mean [Standing (for 1 minute prior to obtaining)] 53 Pulse Ox 100 Oxygen Delivery Method Room Air Room Air 08/01/24 17:20 08/01/24 19:00 08/01/24 20:55 Temperature Temperature Source Pulse Rate 78 80 Pulse Rate [Lying] 63 Pulse Rate [Sitting (for 1 minute prior to obtaining)] 67 Pulse Rate [Standing (for 1 minute prior to obtaining)] 91 Respiratory Rate 16 Respiratory Effort Respiratory Depth Respiratory Pattern Blood Pressure 85/52 L 90/50 L Blood Pressure [Lying] 88/52 L Blood Pressure [Sitting (for 1 minute prior to obtaining)] 87/44 L Blood Pressure [Standing (for 1 minute prior to obtaining)] 86/59 L Blood Pressure Mean 63 63 Blood Pressure Mean [Lying] 64 Blood Pressure Mean [Sitting (for 1 minute prior to obtaining)] 58 Blood Pressure Mean [Standing (for 1 minute prior to obtaining)] 68 Pulse Ox 100 99 Oxygen Delivery Method Room Air Room Air 08/01/24 21:00 08/01/24 21:13 08/01/24 21:35 Temperature Temperature Source Pulse Rate 68 77 71 Pulse Rate [Lying] Pulse Rate [Sitting (for 1 minute prior to obtaining)] Pulse Rate [Standing (for 1 minute prior to obtaining)] Respiratory Rate 11 L 17 16 Respiratory Effort Respiratory Depth Respiratory Pattern Blood Pressure 87/61 L 87/61 L 106/62 Blood Pressure [Lying] Blood Pressure [Sitting (for 1 minute prior to obtaining)] Blood Pressure [Standing (for 1 minute prior to obtaining)] Blood Pressure Mean 69 69 76 Blood Pressure Mean [Lying] Blood Pressure Mean [Sitting (for 1 minute prior to obtaining)] Blood Pressure Mean [Standing (for 1 minute prior to obtaining)] Pulse Ox 100 100 99 Oxygen Delivery Method Room Air Room Air Room Air 08/01/24 21:59 Temperature Temperature Source Pulse Rate Pulse Rate [Lying] Pulse Rate [Sitting (for 1 minute prior to obtaining)] Pulse Rate [Standing (for 1 minute prior to obtaining)] Respiratory Rate Respiratory Effort Respiratory Depth Respiratory Pattern Blood Pressure 95/45 L Blood Pressure [Lying] Blood Pressure [Sitting (for 1 minute prior to obtaining)] Blood Pressure [Standing (for 1 minute prior to obtaining)] Blood Pressure Mean 61 Blood Pressure Mean [Lying] Blood Pressure Mean [Sitting (for 1 minute prior to obtaining)] Blood Pressure Mean [Standing (for 1 minute prior to obtaining)] Pulse Ox Oxygen Delivery Method Orthostatic vital signs were positive. Patient had 1 L ordered. Positive well nourished and well developed Constitutional Narrative: Vital signs are remarkable for hypotension. This may be due to size and improper cuff. Will have nurse reassess. He is somnolent. He did wake to verbal. General Appearance ED: well developed and NAD HEENT Reports moist mucous membranes HEENT Narrative: Head is atraumatic normocephalic. Ears normal. Nares patent. Posterior pharynx is normal. Uvula is midline. There is no deviation tongue or protrusion. There are no dermatologic lesions noted. Negative [place] sign. Eyes PERRL and EOMs intact bilaterally General Eye ED: Negative for pale conjunctiva or scleral icterus Neck no lymphadenopathy, supple and no JVD Chest Wall inspection of chest normal and palpation of chest normal Resp normal respiratory effort and clear to auscultation bilaterally Cardio regular rate, regular rhythm, S1 normal heart sound, S2 normal heart sound and no murmurs GI normal to inspection, nondistended, normoactive bowel sounds, non-tender, non-distended and no masses; Negative for hepatosplenomegaly Back/Spine no CVA tenderness Thoracic Spine / Upper Back: Negative for thoracic spinal tenderness Lumbar Spine / Lower Back: Negative for lumbar spinal tenderness Extremity normal to inspection Extremity Narrative: There is no clubbing or cyanosis. Capillary refill is normal. Finger beds look pale. Neuro oriented x3, CN's II-XII intact bilaterally and no sensory deficits noted Neuro Narrative: Negative clonus or Babinski sign. Sensorium / Orientation: Negative for alert Psych Psych Narrative: Difficult to assess Skin no rashes or lesions noted, no wounds and skin turgor normal General Skin Exam: Negative for elasticity normal MDM MDM MDM Narrative Medical decision making narrative: Patient with vague symptoms. Will obtain competence of metabolic panel and CBC to assess for metabolic infectious cause. Symptoms are not concerning for subarachnoid hemorrhage. Per the [place] subarachnoid criteria imaging is not indicated. Prior records were reviewed. There is no ER visit due to subarachnoid hemorrhage. Patient and friend states he has history of aneurysm and was admitted due to bleed. Lab Data Attestation: I reviewed the patient's lab results. Lab results narrative: CBC is unremarkable. There is a predominance of lymphocytes which would support a viral infection. Comprehensive metabolic panel no slight elevation of glucose of 117 with normal CO2 anion gap otherwise normal. Labs: Laboratory Results - last 24 hr 08/01/24 15:43 WBC 7.2 RBC 5.18 Hgb 15.3 Hct 47.2 MCV 91.1 MCH 29.5 MCHC 32.4 RDW Std Deviation 47.8 H RDW Coeff of Myesha 14.2 Plt Count 233 MPV 9.4 Immature Gran % (Auto) 0.700 Neut % (Auto) 39.1 L Lymph % (Auto) 49.7 H Elbert % (Auto) 8.4 Eos % (Auto) 1.4 Baso % (Auto) 0.7 Absolute Neuts (auto) 2.8 Absolute Lymphs (auto) 3.56 Nucleated RBC % 0 Sodium 138 Potassium 3.6 Chloride 101 Carbon Dioxide 25.0 Anion Gap 11 BUN 17 Creatinine 1.29 Estim Creat Clear Calc 58.75 Est GFR (MDRD) Af Amer 80 Est GFR (MDRD) Non-Af 66 BUN/Creatinine Ratio 13.2 Glucose 117 H Calcium 9.3 Total Bilirubin 0.70 AST 21 ALT 24 Alkaline Phosphatase 69 Total Protein 7.9 Albumin 4.1 Globulin 3.8 Albumin/Globulin Ratio 1.1 Radiography Chest X-Ray - ED: 2 View, Normal, Heart, Lungs, Mediastinum, Bony Structures and No Acute Disease Diagnostic Testing: Clinical Impression(s) from Imaging Studies Chest X-Ray 08/01/24 15:48 IMPRESSION: No acute radiographic process. Reading Location: [facility] Treatment and Re-Evaluation :: Orthostatic vital signs were ordered again after 1.5 L infused. He is positive by heart rate but not blood pressure as he was not initially. Additional liter of normal saline was ordered. Patient was reassessed at 2019. He is now sitting up. He is alert oriented. He has urge to urinate. His blood pressure has improved. Will discharge to home. Discharge Plan Triage Chief Complaint: Shortness of Breath ED Provider: Artie Chow Dx/Rx/DC Orders Clinical Impression: Acute alteration in mental status, Orthostatic hypotension, Severe dehydration Instructions: ED Dehydration (Adult) Prescriptions: No Action NK azithromycin [Zithromax Z-Charli] 250 mg tablet See Rx Instructions PO .COMPLEX Qty: 6 0RF Rx Instructions: take 500 mg today (day 1), then 250 mg for 4 days (days 2-5) Primary Care Provider: Care Physician,No Primary Referrals: Tana Moyer [facility] [Provider Group] - As Needed Care Physician,No Primary [Primary Care Provider] - Print Language: [place] Disposition Disposition: Home, Self Care
[2024-08-01] MEDS: 0.9% Normal Saline (500mL Bag) 500 ML 1000 ML IV (15:41)
--- NOTE | 2024-08-01 15:48 | RAD_ITS ---
PROCEDURE: CHEST PA AND LATERAL REASON FOR EXAM: Cough TECHNIQUE: Frontal and lateral views of the chest. COMPARISON: Reviewed. FINDINGS: The heart size is normal. The mediastinal contour is unremarkable. The lungs are clear. The bones are unremarkable. Hyperinflated lungs. RAD/Chest PA and Lateral IMPRESSION: No acute radiographic process. Reading Location: [facility]
[2024-08-01 15:55] LABS: Absolute Lymphocyte Count 3.56 X10^3/uL (0.83-4.51); Absolute Neutrophil Count 2.8 X10^3/uL (2.0-7.7); Basophil# 0.05 X10^3/uL; Basophil% 0.7 % (0-1); Eosinophils% 1.4 % (0-5); Hematocrit 47.2 % (40-54); Hemoglobin 15.3 g/dL (13.0-16.5); Lymphocyte # 3.56 X10^3/ul (0.83-4.51); Lymphocyte % 49.7 % (19-41); Mean Corp Hgb Conc 32.4 g/dL (32-36); Mean Corpuscular Hgb 29.5 pg (27.0-32.0); Mean Corpuscular Volume 91.1 fL (80-94); Mean Platelet Vol. 9.4 fl (6.2-12.0); Monocyte% 8.4 % (0-10); NRBC Flagged by Analyzer 0 % (0-5); Neutrophil % 39.1 % (47-70); Platelet Count 233 K/mm3 (150-450); RBC Distribution Width CV 14.2 % (11.6-14.6); RBC Distribution Width SD 47.8 fl (35.1-43.9); Red Blood Count 5.18 M/mm3 (4.6-6.2); White Blood Count 7.2 K/mm3 (4.4-11.0)
[2024-08-01 16:11] LABS: ALB/GLOB Ratio 1.1 RATIO (0.9-2.4); AST(SGOT) 21 U/L (15-37); Alanine Aminotransfer ALT/SGPT 24 U/L (16-61); Albumin, Serum 4.1 g/dL (3.2-5.0); Alkaline Phosphatase 69 U/L (45-117); Anion Gap 11 (5-15); BUN 17 mg/dL (7-18); BUN/Creat Ratio 13.2 RATIO (10-20); Calcium,Total 9.3 mg/dL (8.5-10.1); Chloride 101 mmol/L (98-107); Creatinine, Serum 1.29 mg/dL (0.70-1.30); EST Glomerular Filtration Rate 66 mL/min (>60); Est Glom Filt Rate - Afr Amer 80 mL/min (>60); Estimated Creatinine Clearance 58.75 ml/min; Globulin 3.8 g/dL (2.2-4.2); Glucose 117 mg/dL (74-106); Potassium 3.6 mmol/L (3.5-5.1); Protein, Total 7.9 g/dL (6.4-8.2); Sodium Level 138 mmol/L (136-145)
[2024-08-01] MEDS: 0.9% Normal Saline (1000mL) 1,000 ML 1000 ML IV ×2 (18:06→21:12)
== END 2024-08-01 22:32 | disposition home or self-care (01) ==
PROVIDERS: Emergency Provider Emergency Medicine; Visit Provider Emergency Medicine
DX: R06.02 Shortness of breath (principal); R41.82 Altered mental status, unspecified; I95.1 Orthostatic hypotension; E86.0 Dehydration; F17.210 Nicotine dependence, cigarettes, uncomplicated
CPT/HCPCS: 71046; 80053; 85025; 96360; 96361; 99285; A4216